=== PATIENT | male | born 1945 | race Asian ===

== ENCOUNTER 2020-05-10 10:11 | Emergency (ER) | payer OTHER ==
[~2020-05-10] VITALS: Ht 165.1 cm; Wt 74.8 kg
[2020-05-10 10:11] VITALS: BP 186/87; TEMP 98.5
[2020-05-10 12:08] LABS: PLATELET COUNT 212 K/uL (142-355)
[2020-05-10 12:35] LABS: POTASSIUM 3.5 mmol/L (3.6-5.2)
[2020-05-10] MEDS ORDERED: BRIMONIDINE0.15 % OPTH (15:11)
[2020-05-10] MEDS ORDERED: LATANOPROST0.005 % OPTH (15:12)
[2020-05-10] MEDS ORDERED: TRAZODONE HYDR150 MG PO (15:12)
[2020-05-10] MEDS ORDERED: SIMV10TA PO (15:13)
[2020-05-10] MEDS ORDERED: ASA LOW DOSE81 MG PO (15:13)
[2020-05-10] MEDS ORDERED: RIVASTIGMINE TD (15:14)
[2020-05-10] MEDS ORDERED: CALCIUM 600 + D PO (15:14)
[2020-05-10] MEDS ORDERED: ZIPRASIDONE HYD40 MG PO (15:15)
[2020-05-10] MEDS ORDERED: THEOPHYLLINE PO (15:16)
[2020-05-10] MEDS ORDERED: DIVALPROEX500 MG PO (15:18)
[2020-05-10] MEDS ORDERED: LOSA50TA PO (15:19)
[2020-05-10] MEDS ORDERED: BENZTROPINE0.5 MG PO (15:19)
[2020-05-10] MEDS ORDERED: COZAAR100 MG PO (15:20)
== END 2020-05-10 13:39 | disposition other institution (70) ==
LOC: ED 10:30
PROVIDERS: Emergency Medicine
DX: Z04.6 Encounter for general psychiatric examination, requested by authority (principal); F28 Other psychotic disorder not due to a substance or known physiological condition; F91.8 Other conduct disorders; Z11.59 Encounter for screening for other viral diseases
CPT/HCPCS: 36415; 80053; 85027; 87635; 93005; 99283; 99285; G2023; U00003